=== PATIENT | female | born 1955 | race Caucasian/White ===

== ENCOUNTER 2017-07-14 12:23 | Outpatient (CLI) | payer OTHER ==
--- NOTE | 2017-07-14 14:06 | Diagnostic Imaging Report ---
GLORIA LEMONS [facility] [address] [facility].[address] [address] Report Submission Date: Jul 14, 2017 12:54:28 PM SQUAD LEADER Patient Study Name: OMERO PINEDO Date: Jul 14, 2017 12:36:21 PM SQUAD LEADER Modality Type: CR Gender: F Description: UPPER EXTREMITY : 55 Institution: [facility] Physician: GLORIA LEMONS Examination: Plain film wrist History: Wrist discomfort Comparison exams: None available Findings: 3 views the wrist demonstrate normal cortical margins. No fracture. No dislocation. No soft tissue abnormality. Impression: No acute osseous abnormality. Electronically signed on Jul 14, 2017 12:54:28 PM SQUAD LEADER by: Marcelino GARCIA
--- NOTE | 2017-07-14 14:06 | Diagnostic Imaging Report ---
GLORIA LEMONS [facility] [address] [facility].[address] [address] Report Submission Date: Jul 14, 2017 12:53:21 PM RAD TECHNOLOGIST Patient Study Name: OMERO PINEDO Date: Jul 14, 2017 12:32:46 PM RAD TECHNOLOGIST Modality Type: CR Gender: F Description: UPPER EXTREMITY : 55 Institution: [facility] Physician: GLORIA LEMONS Examination: Plain film hand History: Hand discomfort Comparison exams: None available Findings: 3 views the hand demonstrate normal cortical margins. No fracture. No dislocation. No soft tissue abnormality. Impression: No acute osseous abnormality. Electronically signed on Jul 14, 2017 12:53:21 PM RAD TECHNOLOGIST by: Marcelino GARCIA
== END 2017-07-14 14:51 ==
LOC: RAD 12:23
PROVIDERS: ATTEND Family Medicine
DX: M79.642 Pain in left hand (principal); W19.XXXA Unspecified fall, initial encounter
CPT/HCPCS: 73110; 73130

== ENCOUNTER 2017-12-22 09:55 | Outpatient (CLI) | payer OTHER ==
--- NOTE | 2017-12-22 11:10 | Diagnostic Imaging Report ---
GLORIA LEMONS [facility] [address] [facility].[address] [address] Report Submission Date: December 22, 2017 10:30:41 AM CDT Patient Study Name: OMERO PINEDO Date: December 22, 2017 9:58:46 AM CDT Modality Type: DX Gender: F Description: UPPER EXTREMITY : 55 Institution: [facility] Physician: GLORIA LEMONS Examination: Plain film right hand History: RT HAND, PAIN IN RT HAND, WORSE IN 4TH AND 5TH MCP AREA, AFTER HITTING HAND ON DESK ABOUT A WEEK AGO (Hx) Comparison exams: None available Findings: 3 views the right hand demonstrate normal cortical margins. Mild articular degenerative changes. No fracture. No dislocation. No soft tissue abnormality. Impression: No acute osseous abnormality Electronically signed on December 22, 2017 10:30:41 AM CDT by: Marcelino GARCIA
== END 2017-12-22 12:19 ==
LOC: RAD 09:55
PROVIDERS: ATTEND Family Medicine
DX: M79.641 Pain in right hand (principal)
CPT/HCPCS: 73130